=== PATIENT | male | born 1935 | race Hispanic/Latino ===

== ENCOUNTER 2023-10-11 13:03 | Inpatient (IN) ==
[2023-10-11 13:35] LABS: Basophils # (Auto) 0 K/mcL (0.00-0.30); Basophils % (Auto) 0 % (0.0-2.0); Eosinophils # (Auto) 0.06 K/mcL (0.00-0.70); Eosinophils % (Auto) 0.5 % (0.0-7.0); Hematocrit 35.8 % (40.1-51.0); Hemoglobin 11.4 g/dL (13.7-17.5); Lymphocytes # (Auto) 0.52 K/mcL (1.50-4.80); Lymphocytes % (Auto) 4.8 % (15.5-49.0); Mean Cell Volume 89.5 fL (80.0-100.0); Mean Corpuscular HGB Conc 31.8 g/dL (31.0-36.0); Mean Platelet Volume 10.4 fL (8.8-12.5); Monocytes # (Auto) 0.76 K/mcL (0.10-0.90); Neutrophils % (Auto) 85.4 % (38.0-78.0); Platelet Count 275 K/mcL (140-440); Red Cell Distribution Width 15.5 % (11.5-14.5); WBC 10.9 K/mcL (4.5-11.0)
[2023-10-11] MEDS: 0.9 % SODIUM CHLORIDE 500 ML IV ONE (13:45)
[2023-10-11 14:02] LABS: Thyroid Stimulating Hormone 0.86 uIU/mL (0.27-5.01)
[2023-10-11 14:04] LABS: ALT/SGPT 71 U/L (<40); AST/SGOT 88 U/L (<40); Albumin 3.2 gm/dL (3.2-5.2); Alkaline Phosphatase 85 U/L (39-117); Bilirubin,Total 0.5 mg/dL (0.1-1.0); Blood Urea Nitrogen 88 mg/dL (8-23); Calcium 9.3 mg/dL (8.6-10.4); Carbon Dioxide 17 mmol/L (22-30); Chloride 97 mmol/L (96-108); Globulin 3.3 gm/dL (2.2-3.7); Glomerular Filtration Rate 13; Glucose 112 mg/dL (70-105); Sodium 134 mmol/L (133-145)
[2023-10-11] MEDS: cefTRIAXone 2 GM in DEXTROSE 5% IN WATER 50 ML IV ONE ×2 (14:23→15:24)
[2023-10-11] MEDS: CEFEPIME 2 GM VIAL IV ONE (15:55)
[2023-10-11] MEDS: AZITHROMYCIN 500 MG in DEXTROSE 5% IN WATER 250 ML IV ONE (16:05)
[2023-10-11] MEDS ORDERED: SENNOSIDES 1 TABLET PO PRN (17:24)
[2023-10-11] MEDS ORDERED: VANCOMYCIN PER PHARMACY IV SCH (17:24)
[2023-10-11] MEDS ORDERED: ONDANSETRON 4 MG/2 ML VIAL IV PRN (17:24)
[2023-10-11] MEDS: 0.9 % SODIUM CHLORIDE 1,000 ML IV ONE (18:03)
[2023-10-11] MEDS: VANCOMYCIN 1,000 MG in 0.9 % SODIUM CHLORIDE 250 ML IV ONE (18:04)
[2023-10-11] MEDS: 0.9 % SODIUM CHLORIDE 250 ML IV SCH (19:00)
[2023-10-11] MEDS: NOREPINEPHRINE BITARTRATE 8 MG in 0.9 % SODIUM CHLORIDE 242 ML IV SCH (19:01)
[2023-10-11] MEDS: 0.9 % SODIUM CHLORIDE 1,000 ML IV SCH (19:04)
[2023-10-11] MEDS: PIPERACILLIN SODIUM/TAZOBACTAM 3.375 GM in DEXTROSE 5% IN WATER 50 ML IV ONE (19:04)
[2023-10-11 19:07] LABS: Appearance,Urine Clear (Clear); Bilirubin,Urine Negative (Negative); Color,Urine Yellow; Culture Indicated,Urine No; Glucose,Urine (UA) Negative (Negative); Ketones,Urine Negative (Negative); Leukocyte Esterase,Urine Negative /uL (Negative); Nitrate,Urine Negative (Negative); Protein,Urine 100 mg/dL (Negative); Urine Amorphous Crystals Mod /hpf; Urine Blood 2+(Moderate) ery/mcL (Negative); Urine Hyaline Cast 15 /lph (0-2); Urine RBC 1 /hpf (0-3); Urine Squamous Epithelial Cell 6 /hpf (0-4); Urine WBC 4 /hpf (0-4); Urobilinogen,Urine Normal
[2023-10-11] MEDS: PIPERACILLIN SODIUM/TAZOBACTAM 3.375 GM in DEXTROSE 5% IN WATER 50 ML IV SCH (19:33)
[2023-10-11] MEDS: HEPARIN 5,000 UNIT/ML VIAL SQ SCH (20:20)
[2023-10-11] MEDS: 0.9 % SODIUM CHLORIDE 10 ML SYRINGE IV SCH (20:21)
[2023-10-11] MEDS: DOCUSATE SODIUM 100 MG CAPSULE PO SCH (20:26)
[2023-10-12] MEDS: PIPERACILLIN SODIUM/TAZOBACTAM 3.375 GM in DEXTROSE 5% IN WATER 100 ML IV SCH (02:45)
[2023-10-12 06:44] LABS: Basophils # (Auto) 0 K/mcL (0.00-0.30); Basophils % (Auto) 0 % (0.0-2.0); Eosinophils # (Auto) 0.04 K/mcL (0.00-0.70); Eosinophils % (Auto) 0.2 % (0.0-7.0); Hematocrit 33.1 % (40.1-51.0); Hemoglobin 10.9 g/dL (13.7-17.5); Lymphocytes # (Auto) 0.72 K/mcL (1.50-4.80); Lymphocytes % (Auto) 4.1 % (15.5-49.0); Mean Cell Volume 87.3 fL (80.0-100.0); Mean Corpuscular HGB Conc 32.9 g/dL (31.0-36.0); Mean Platelet Volume 10.4 fL (8.8-12.5); Monocytes # (Auto) 0.94 K/mcL (0.10-0.90); Monocytes % (Auto) 5.4 % (1.0-12.0); Platelet Count 274 K/mcL (140-440); RBC 3.79 M/mcL (4.63-6.08); Red Cell Distribution Width 15.4 % (11.5-14.5); WBC 17.6 K/mcL (4.5-11.0)
[2023-10-12 06:50] LABS: Phosphorous 2.5 mg/dL (2.5-4.5)
[2023-10-12 06:55] LABS: ALT/SGPT 64 U/L (<40); AST/SGOT 49 U/L (<40); Albumin 2.7 gm/dL (3.2-5.2); Albumin/Globulin Ratio 0.9 (1.0-2.3); Alkaline Phosphatase 93 U/L (39-117); Bilirubin,Total 0.7 mg/dL (0.1-1.0); Blood Urea Nitrogen 65 mg/dL (8-23); Calcium 8.8 mg/dL (8.6-10.4); Carbon Dioxide 19 mmol/L (22-30); Chloride 104 mmol/L (96-108); Globulin 3.1 gm/dL (2.2-3.7); Glomerular Filtration Rate 26; Glucose 138 mg/dL (70-105); Potassium 2.8 mmol/L (3.3-5.1); Sodium 136 mmol/L (133-145)
[2023-10-12] MEDS: POTASSIUM CHLORIDE 40 MEQ in DEXTROSE 5% IN WATER 500 ML IV SCH (08:48)
[2023-10-12] MEDS: ACETAMINOPHEN 325 MG TABLET PO PRN (10:50)
[2023-10-12] MEDS: IPRATROPIUM/ALBUTEROL 3 ML AMPUL.NEB NEB PRN (16:00)
[2023-10-12] MEDS: POTASSIUM CHLORIDE 20 MEQ TABLET PO SCH (16:50)
[2023-10-12] MEDS: HYDROcodone/APAP 10/325MG TABLET PO PRN (17:20)
[2023-10-12 17:23] LABS: Potassium 3.1 mmol/L (3.3-5.1)
[2023-10-12] MEDS ORDERED: SALMETEROL INHALATION SCH (21:00)
[2023-10-12] MEDS ORDERED: [UNRECOGNIZED DRUG - OTHER] INHALATION SCH (21:00)
[2023-10-12] MEDS ORDERED: FLUTICASONE PROPIONATE INHALATION SCH (21:00)
[2023-10-12] MEDS: Memantine 28 mg capsule,sprinkle,ER 24hr PO SCH (22:02)
[2023-10-12] MEDS: FLUTICASONE PROPION SALMETEROL INH SCH (22:02)
[2023-10-12] MEDS: RIVASTIGMINE TOPICAL SCH (22:03)
[2023-10-12] MEDS: traZODone HCL 50 MG TABLET PO PRN (22:46)
[2023-10-13 06:19] LABS: Basophils # (Auto) 0.01 K/mcL (0.00-0.30); Basophils % (Auto) 0.1 % (0.0-2.0); Eosinophils # (Auto) 0.21 K/mcL (0.00-0.70); Eosinophils % (Auto) 1.2 % (0.0-7.0); Hematocrit 28.3 % (40.1-51.0); Hemoglobin 9.3 g/dL (13.7-17.5); Lymphocytes # (Auto) 0.63 K/mcL (1.50-4.80); Lymphocytes % (Auto) 3.7 % (15.5-49.0); Mean Cell Volume 87.1 fL (80.0-100.0); Mean Corpuscular HGB Conc 32.9 g/dL (31.0-36.0); Monocytes % (Auto) 4.1 % (1.0-12.0); Neutrophils % (Auto) 85.7 % (38.0-78.0); Platelet Count 201 K/mcL (140-440); RBC 3.25 M/mcL (4.63-6.08); Red Cell Distribution Width 15.3 % (11.5-14.5); WBC 17.2 K/mcL (4.5-11.0)
[2023-10-13 06:20] LABS: ALT/SGPT 48 U/L (<40); AST/SGOT 38 U/L (<40); Albumin 2.4 gm/dL (3.2-5.2); Albumin/Globulin Ratio 0.9 (1.0-2.3); Alkaline Phosphatase 76 U/L (39-117); Bilirubin,Total 0.7 mg/dL (0.1-1.0); Blood Urea Nitrogen 44 mg/dL (8-23); Calcium 8.7 mg/dL (8.6-10.4); Carbon Dioxide 19 mmol/L (22-30); Chloride 107 mmol/L (96-108); Globulin 2.8 gm/dL (2.2-3.7); Glomerular Filtration Rate 54; Glucose 105 mg/dL (70-105); Potassium 3.1 mmol/L (3.3-5.1); Sodium 136 mmol/L (133-145)
[2023-10-13] MEDS: PANTOPRAZOLE 40 MG TABLET PO SCH (07:37)
[2023-10-13] MEDS ORDERED: NOREPINEPHRINE BITARTRATE 8 MG in 0.9 % SODIUM CHLORIDE 242 ML IV PRN (08:41)
[2023-10-13] MEDS: DONEPEZIL 10 MG TABLET PO SCH (09:11)
[2023-10-13] MEDS: FLUoxetine HCL 20 MG CAPSULE PO SCH (09:12)
[2023-10-13] MEDS: CLOPIDOGREL 75 MG TABLET PO SCH (09:12)
[2023-10-13] MEDS: ALBUTEROL SULFATE 60 PUFF INHALER INH PRN (16:04)
[2023-10-13] MEDS: 0.9 % SODIUM CHLORIDE 500 ML IV ONE (20:24)
[2023-10-14] MEDS: METOPROLOL TARTRATE 5 MG/5 ML VIAL IV ONE ×2 (05:01→05:11)
[2023-10-14] MEDS: methylPREDNISolone SOD SUCC 125 MG/2 ML VIAL IV SCH (05:51)
[2023-10-14] MEDS: methylPREDNISolone SOD SUCC 125 MG/2 ML VIAL ONE (06:32)
[2023-10-14 06:35] LABS: Basophils # (Auto) 0.04 K/mcL (0.00-0.30); Basophils % (Auto) 0.2 % (0.0-2.0); Eosinophils # (Auto) 0.26 K/mcL (0.00-0.70); Eosinophils % (Auto) 1.2 % (0.0-7.0); Hemoglobin 9.7 g/dL (13.7-17.5); Lymphocytes # (Auto) 0.62 K/mcL (1.50-4.80); Mean Cell Volume 89.3 fL (80.0-100.0); Mean Corpuscular HGB Conc 32.3 g/dL (31.0-36.0); Mean Platelet Volume 11.4 fL (8.8-12.5); Monocytes # (Auto) 0.69 K/mcL (0.10-0.90); Monocytes % (Auto) 3.3 % (1.0-12.0); Neutrophils % (Auto) 84.8 % (38.0-78.0); Platelet Count 220 K/mcL (140-440); RBC 3.36 M/mcL (4.63-6.08); Red Cell Distribution Width 15.4 % (11.5-14.5); WBC 20.9 K/mcL (4.5-11.0)
[2023-10-14 07:03] LABS: Phosphorous 2.9 mg/dL (2.5-4.5)
[2023-10-14] MEDS ORDERED: IOPAMIDOL 100 ML BOTTLE IV ONE (07:29)
[2023-10-14] MEDS: IPRATROPIUM/ALBUTEROL 3 ML AMPUL.NEB NEB SCH (07:30)
[2023-10-14] MEDS: 0.9 % SODIUM CHLORIDE 1,000 ML IV SCH (08:13)
[2023-10-14 08:18] LABS: ALT/SGPT 56 U/L (<40); AST/SGOT 42 U/L (<40); Albumin 2.4 gm/dL (3.2-5.2); Albumin/Globulin Ratio 0.9 (1.0-2.3); Alkaline Phosphatase 74 U/L (39-117); Bilirubin,Total 0.8 mg/dL (0.1-1.0); Blood Urea Nitrogen 30 mg/dL (8-23); Calcium 8.5 mg/dL (8.6-10.4); Carbon Dioxide 18 mmol/L (22-30); Chloride 109 mmol/L (96-108); Globulin 2.7 gm/dL (2.2-3.7); Glomerular Filtration Rate 67; Glucose 126 mg/dL (70-105); Potassium 3.6 mmol/L (3.3-5.1); Sodium 138 mmol/L (133-145)
[2023-10-14] MEDS: PANTOPRAZOLE 40 MG VIAL IV SCH (08:29)
[2023-10-14] MEDS: AZITHROMYCIN 500 MG in DEXTROSE 5% IN WATER 250 ML IV SCH (11:19)
[2023-10-15 06:24] LABS: Basophils # (Auto) 0.04 K/mcL (0.00-0.30); Basophils % (Auto) 0.2 % (0.0-2.0); Eosinophils # (Auto) 0 K/mcL (0.00-0.70); Eosinophils % (Auto) 0 % (0.0-7.0); Hemoglobin 9.3 g/dL (13.7-17.5); Lymphocytes % (Auto) 3.3 % (15.5-49.0); Mean Cell Volume 90.1 fL (80.0-100.0); Mean Corpuscular HGB Conc 32.1 g/dL (31.0-36.0); Mean Platelet Volume 11.3 fL (8.8-12.5); Monocytes # (Auto) 0.61 K/mcL (0.10-0.90); Monocytes % (Auto) 2.9 % (1.0-12.0); Neutrophils % (Auto) 90.1 % (38.0-78.0); Platelet Count 209 K/mcL (140-440); RBC 3.22 M/mcL (4.63-6.08); WBC 20.9 K/mcL (4.5-11.0)
[2023-10-15 06:42] LABS: Phosphorous 2.5 mg/dL (2.5-4.5)
[2023-10-15 06:52] LABS: ALT/SGPT 63 U/L (<40); AST/SGOT 58 U/L (<40); Albumin 2.5 gm/dL (3.2-5.2); Albumin/Globulin Ratio 0.8 (1.0-2.3); Alkaline Phosphatase 78 U/L (39-117); Bilirubin,Total 0.4 mg/dL (0.1-1.0); Blood Urea Nitrogen 23 mg/dL (8-23); Calcium 8.8 mg/dL (8.6-10.4); Carbon Dioxide 16 mmol/L (22-30); Chloride 107 mmol/L (96-108); Globulin 3.1 gm/dL (2.2-3.7); Glomerular Filtration Rate 80; Glucose 137 mg/dL (70-105); Sodium 135 mmol/L (133-145)
[2023-10-15] MEDS: PANTOPRAZOLE 40 MG TABLET PO SCH (17:10)
[2023-10-15] MEDS: LOPERAMIDE 2 MG CAPSULE PO PRN (21:28)
[2023-10-16 06:31] LABS: ALT/SGPT 86 U/L (<40); AST/SGOT 55 U/L (<40); Albumin 2.7 gm/dL (3.2-5.2); Albumin/Globulin Ratio 0.8 (1.0-2.3); Alkaline Phosphatase 99 U/L (39-117); Bilirubin,Total 0.4 mg/dL (0.1-1.0); Blood Urea Nitrogen 25 mg/dL (8-23); Calcium 9.3 mg/dL (8.6-10.4); Carbon Dioxide 14 mmol/L (22-30); Chloride 109 mmol/L (96-108); Globulin 3.2 gm/dL (2.2-3.7); Glomerular Filtration Rate 76; Glucose 181 mg/dL (70-105); Phosphorous 3.2 mg/dL (2.5-4.5); Potassium 4.2 mmol/L (3.3-5.1); Sodium 136 mmol/L (133-145)
[2023-10-16 06:35] LABS: Basophils # (Auto) 0.05 K/mcL (0.00-0.30); Basophils % (Auto) 0.2 % (0.0-2.0); Eosinophils # (Auto) 0 K/mcL (0.00-0.70); Eosinophils % (Auto) 0 % (0.0-7.0); Hematocrit 33.5 % (40.1-51.0); Hemoglobin 10.2 g/dL (13.7-17.5); Lymphocytes # (Auto) 0.62 K/mcL (1.50-4.80); Lymphocytes % (Auto) 2.9 % (15.5-49.0); Mean Cell Volume 94.9 fL (80.0-100.0); Mean Corpuscular HGB Conc 30.4 g/dL (31.0-36.0); Mean Platelet Volume 10.2 fL (8.8-12.5); Monocytes # (Auto) 0.41 K/mcL (0.10-0.90); Monocytes % (Auto) 1.9 % (1.0-12.0); Neutrophils % (Auto) 89.3 % (38.0-78.0); Platelet Count 275 K/mcL (140-440); RBC 3.53 M/mcL (4.63-6.08); Red Cell Distribution Width 16.4 % (11.5-14.5); WBC 21.6 K/mcL (4.5-11.0)
[2023-10-16] MEDS: guaiFENesin/DEXTROMETHORPHAN 5ML UD CUP PO PRN (07:44)
[2023-10-16] MEDS: IPRATROPIUM/ALBUTEROL 3 ML AMPUL.NEB NEB SCH (13:38)
[2023-10-16] MEDS: ALBUMIN HUMAN 12.5 GM/50 ML VIAL IV SCH (14:44)
[2023-10-16] MEDS: FUROSEMIDE 40 MG/4 ML VIAL IV SCH (14:57)
[2023-10-16] MEDS: SODIUM BICARBONATE 650 MG TABLET PO SCH (16:10)
[2023-10-16] MEDS: ALBUTEROL SULFATE 2.5 MG/3 ML NEBULIZER NEB PRN (20:44)
[2023-10-16] MEDS: methylPREDNISolone SOD SUCC 125 MG/2 ML VIAL IV SCH (21:19)
[2023-10-16] MEDS: ALBUTEROL SULFATE 2.5 MG/3 ML NEBULIZER ONE (21:21)
[2023-10-17 06:51] LABS: Hematocrit 28.7 % (40.1-51.0); Hemoglobin 8.7 g/dL (13.7-17.5); Mean Cell Volume 94.4 fL (80.0-100.0); Mean Corpuscular HGB Conc 30.3 g/dL (31.0-36.0); Mean Platelet Volume 10.6 fL (8.8-12.5); Platelet Count 261 K/mcL (140-440); RBC 3.04 M/mcL (4.63-6.08); Red Cell Distribution Width 16.3 % (11.5-14.5); WBC 15.3 K/mcL (4.5-11.0)
[2023-10-17 06:53] LABS: ALT/SGPT 75 U/L (<40); AST/SGOT 43 U/L (<40); Albumin 2.6 gm/dL (3.2-5.2); Albumin/Globulin Ratio 1.1 (1.0-2.3); Alkaline Phosphatase 85 U/L (39-117); Bilirubin,Direct < 0.2 mg/dL (0-0.3); Bilirubin,Total 0.3 mg/dL (0.1-1.0); Blood Urea Nitrogen 30 mg/dL (8-23); Calcium 8.6 mg/dL (8.6-10.4); Carbon Dioxide 19 mmol/L (22-30); Chloride 106 mmol/L (96-108); Globulin 2.4 gm/dL (2.2-3.7); Glomerular Filtration Rate 76; Glucose 114 mg/dL (70-105); Lactate Dehydrogenase 285 U/L (135-225); Phosphorous 2.9 mg/dL (2.5-4.5); Potassium 3.9 mmol/L (3.3-5.1); Sodium 137 mmol/L (133-145); Triglycerides 95 mg/dL (<150); Uric Acid 4.2 mg/dL (2.5-8.0)
[2023-10-17] MEDS: ALBUMIN HUMAN 12.5 GM/50 ML VIAL IV SCH (08:39)
[2023-10-17 08:56] LABS: Band Neutrophils % 1 % (0-10); Hypochromasia 2+ (None Seen); Lymphocytes % 7 % (15-49); Platelet Estimate NORMAL (Normal); RBC Morphology ABNORMAL (Normal); Reactive Lymphocytes 1 % (0-2); Segmented Neutrophils % 91 % (38-78)
[2023-10-17] MEDS: FUROSEMIDE 100 MG/10 ML VIAL IV SCH (08:56)
[2023-10-17] MEDS: methylPREDNISolone SOD SUCC 40 MG/ML VIAL IV SCH (08:57)
[2023-10-17] MEDS: CHOLESTYRAMINE/ASPARTAME 4 GM POWD.PACK PO SCH (10:52)
[2023-10-17] MEDS: IPRATROPIUM/ALBUTEROL 3 ML AMPUL.NEB NEB PRN (13:12)
[2023-10-17] MEDS: METOPROLOL TARTRATE 5 MG/5 ML VIAL IV PRN (19:32)
[2023-10-18] MEDS: LORazepam 2 MG/ML VIAL IV PRN (06:25)
[2023-10-18 06:34] LABS: Basophils # (Auto) 0.02 K/mcL (0.00-0.30); Basophils % (Auto) 0.1 % (0.0-2.0); Eosinophils # (Auto) 0 K/mcL (0.00-0.70); Eosinophils % (Auto) 0 % (0.0-7.0); Hemoglobin 8.8 g/dL (13.7-17.5); Lymphocytes # (Auto) 0.79 K/mcL (1.50-4.80); Lymphocytes % (Auto) 4.5 % (15.5-49.0); Mean Cell Volume 90.9 fL (80.0-100.0); Mean Corpuscular HGB Conc 31.4 g/dL (31.0-36.0); Mean Platelet Volume 10.4 fL (8.8-12.5); Monocytes # (Auto) 0.35 K/mcL (0.10-0.90); Neutrophils % (Auto) 87.5 % (38.0-78.0); Platelet Count 272 K/mcL (140-440); RBC 3.08 M/mcL (4.63-6.08); Red Cell Distribution Width 15.8 % (11.5-14.5); WBC 17.5 K/mcL (4.5-11.0)
[2023-10-18 07:14] LABS: ALT/SGPT 88 U/L (<40); AST/SGOT 47 U/L (<40); Albumin 2.7 gm/dL (3.2-5.2); Albumin/Globulin Ratio 1.2 (1.0-2.3); Alkaline Phosphatase 83 U/L (39-117); Bilirubin,Direct < 0.2 mg/dL (0-0.3); Bilirubin,Total 0.4 mg/dL (0.1-1.0); Blood Urea Nitrogen 32 mg/dL (8-23); Calcium 8.3 mg/dL (8.6-10.4); Carbon Dioxide 23 mmol/L (22-30); Chloride 101 mmol/L (96-108); Globulin 2.3 gm/dL (2.2-3.7); Glomerular Filtration Rate 76; Glucose 103 mg/dL (70-105); Lactate Dehydrogenase 302 U/L (135-225); Phosphorous 3.3 mg/dL (2.5-4.5); Potassium 3.7 mmol/L (3.3-5.1); Sodium 135 mmol/L (133-145); Triglycerides 97 mg/dL (<150); Uric Acid 4.4 mg/dL (2.5-8.0)
[2023-10-18] MEDS: FUROSEMIDE 40 MG/4 ML VIAL IV ONE (08:11)
[2023-10-18] MEDS: CHOLESTYRAMINE/ASPARTAME 4 GM POWD.PACK PO SCH (10:01)
[2023-10-18] MEDS: predniSONE 20 MG TABLET PO SCH (10:02)
[2023-10-18] MEDS: MELATONIN 3 MG TABLET PO SCH (18:42)
[2023-10-18] MEDS: OLANZapine 5 MG TABLET PO PRN (19:59)
[2023-10-19 05:37] LABS: Basophils # (Auto) 0.01 K/mcL (0.00-0.30); Basophils % (Auto) 0 % (0.0-2.0); Eosinophils # (Auto) 0.14 K/mcL (0.00-0.70); Eosinophils % (Auto) 0.7 % (0.0-7.0); Hematocrit 28.3 % (40.1-51.0); Hemoglobin 9.1 g/dL (13.7-17.5); Lymphocytes # (Auto) 1.01 K/mcL (1.50-4.80); Mean Cell Volume 89.8 fL (80.0-100.0); Mean Corpuscular HGB Conc 32.2 g/dL (31.0-36.0); Monocytes # (Auto) 0.31 K/mcL (0.10-0.90); Monocytes % (Auto) 1.5 % (1.0-12.0); Neutrophils % (Auto) 88.3 % (38.0-78.0); Platelet Count 265 K/mcL (140-440); RBC 3.15 M/mcL (4.63-6.08); Red Cell Distribution Width 15.7 % (11.5-14.5); WBC 20.4 K/mcL (4.5-11.0)
[2023-10-19 05:59] LABS: Blood Urea Nitrogen 29 mg/dL (8-23); Calcium 8.2 mg/dL (8.6-10.4); Carbon Dioxide 27 mmol/L (22-30); Chloride 100 mmol/L (96-108); Glomerular Filtration Rate 76; Glucose 98 mg/dL (70-105); Potassium 3.3 mmol/L (3.3-5.1); Sodium 137 mmol/L (133-145)
[2023-10-20 06:12] LABS: Hematocrit 28.7 % (40.1-51.0); Hemoglobin 9.2 g/dL (13.7-17.5); Mean Corpuscular HGB Conc 32.1 g/dL (31.0-36.0); Mean Platelet Volume 10.3 fL (8.8-12.5); Platelet Count 266 K/mcL (140-440); RBC 3.19 M/mcL (4.63-6.08); Red Cell Distribution Width 16.1 % (11.5-14.5); WBC 20.2 K/mcL (4.5-11.0)
[2023-10-20 07:02] LABS: Anisocytosis 1+ (None Seen); Band Neutrophils % 2 % (0-10); Lymphocytes % 4 % (15-49); Metamyelocytes % 1 %; Monocytes % (Manual) 2 % (1-12); Myelocytes % 1 %; Ovalocytes OCC (None Seen); Platelet Estimate NORMAL (Normal); Poikilocytosis 1+ (None Seen); Polychromasia OCC (None Seen); RBC Fragments FEW (None Seen); RBC Morphology ABNORMAL (Normal); Segmented Neutrophils % 90 % (38-78)
[2023-10-20] MEDS: FUROSEMIDE 100 MG/10 ML VIAL IV SCH (08:09)
[2023-10-20] MEDS: ALBUMIN HUMAN 12.5 GM/50 ML VIAL IV SCH (08:09)
[2023-10-20] MEDS: predniSONE 20 MG TABLET PO SCH (08:10)
[2023-10-21 06:19] LABS: ALT/SGPT 53 U/L (<40); AST/SGOT 22 U/L (<40); Albumin 2.5 gm/dL (3.2-5.2); Albumin/Globulin Ratio 1.2 (1.0-2.3); Alkaline Phosphatase 77 U/L (39-117); Bilirubin,Direct 0.2 mg/dL (<0.3); Bilirubin,Total 0.5 mg/dL (0.1-1.0); Blood Urea Nitrogen 23 mg/dL (8-23); Calcium 8.7 mg/dL (8.6-10.4); Carbon Dioxide 30 mmol/L (22-30); Chloride 98 mmol/L (96-108); Globulin 2.1 gm/dL (2.2-3.7); Glomerular Filtration Rate 76; Glucose 94 mg/dL (70-105); Lactate Dehydrogenase 211 U/L (135-225); Phosphorous 2.6 mg/dL (2.5-4.5); Potassium 3.2 mmol/L (3.3-5.1); Sodium 136 mmol/L (133-145); Triglycerides 95 mg/dL (<150); Uric Acid 3.4 mg/dL (2.5-8.0)
[2023-10-21] MEDS: POTASSIUM CHLORIDE 20 MEQ TABLET PO ONE (08:30)
[2023-10-21 13:34] VITALS: TEMP 98; O2SAT 91
== END 2023-10-21 13:50 | DRG 871 ==
LOC: ED 13:03 → ICU 17:10
PROVIDERS: ADMIT Internal Medicine; ATTEND Internal Medicine